=== PATIENT | female | born 1955 | race Hispanic/Latino ===

== ENCOUNTER 2016-12-15 09:07 | Emergency (ER) | payer OTHER ==
[2016-12-15 09:07] VITALS: BMI 28.1
[2016-12-15 09:13] VITALS: BP 128/73; PULSE 61; RESP 20; TEMP 97.3; O2SAT 99
--- NOTE | 2016-12-15 09:33 | ED PDOC ---
HPI: Female Pain Time Seen by Provider: 12/15/16 09:16 Chief Complaint (Provider): dysuria History Per: Patient History/Exam Limitations: no limitations Onset/Duration Of Symptoms: Days (x 3) Additional Complaint(s): Faye Partida is a 61 year old female,w ith a previous medical history of diabetes and hypertension, who presents to the ED with complaints of dysuria associated with urinary frequency and suprapubic pain ongoing for 3 days. Patient denies any fevers, vomiting or back pain. PMD: none provided Past Medical History Reviewed: Historical Data, Nursing Documentation, Vital Signs Vital Signs: Last Vital Signs Temp 97.3 F L 12/15/16 09:12 Pulse 61 12/15/16 09:12 Resp 20 12/15/16 09:12 BP 128/73 12/15/16 09:12 Pulse Ox 99 12/15/16 09:12 - Medical History PMH: Anxiety, Depression, Diabetes, HTN, Hypercholesterolemia, Hypothyroidism Denies: Chronic Kidney Disease - Surgical History Surgical History: Cholecystectomy, - Family History Family History: States: Unknown Family Hx - Immunization History Hx Tetanus Toxoid Vaccination: No Hx Influenza Vaccination: No Hx Pneumococcal Vaccination: No - Home Medications Home Medications: Ambulatory Orders Medication Instructions Recorded Acetaminophen/Oxycodone Hydr 1 tab PO Q6 PRN #5 tab 01/18/14 [Percocet 325 mg-5 mg] Cephalexin [Keflex] 500 mg PO BID #14 cap 01/18/14 Ibuprofen [Motrin] 600 mg PO Q6 PRN #20 tab 01/18/14 Sulfamethoxazole/Trimethopri 1 tab PO BID #14 tab 01/18/14 [Bactrim Ds 800 mg-160 mg] Acetaminophen/Oxycodone Hydr 1 - 2 100 PO Q4 PRN #20 tab 01/23/14 [Percocet 325 mg-5 mg] Tramadol Hydrochloride [Tramadol] 50 mg PO TID PRN #10 tab 01/23/14 Ibuprofen 600 mg PO Q6H PRN #15 tab 07/09/14 Naproxen 375 mg PO Q8 PRN #21 tab 11/04/14 diaZEpam [Valium] 5 mg PO Q6 PRN #14 tab 11/04/14 oxyCODONE/Acetaminophen [Percocet 1 ea PO Q6 #15 tab 11/04/14 5/325 mg Tab] Methylprednisolone [Medrol Dose 4 mg PO DAILY #21 tab 04/21/15 Pack (21 tabs)] traMADol [Ultram] 50 mg PO Q8 #10 tab 04/21/15 Clotrimazole 1% Vaginal [Lotrimin 1 % VG DAILY 14 Days tube 02/22/16 1% Vaginal] Ciprofloxacin HCl [Cipro] 500 mg PO BID #20 tab 12/15/16 Metformin HCl [Glucophage] 500 mg PO DAILY #30 tablet 12/15/16 amLODIPine [Norvasc] 5 mg PO DAILY #30 tab 12/15/16 - Allergies Allergies/Adverse Reactions: Allergies Allergy/AdvReac Type Severity Reaction Status Date / Time No Known Allergies Allergy Verified 02/22/16 09:02 Review of Systems ROS Statement: Except As Marked, All Systems Reviewed And Found Negative Constitutional: Negative for: Fever, Chills Gastrointestinal: Positive for: Nausea. Negative for: Vomiting Genitourinary Female: Positive for: Dysuria, Frequency, Pelvic Pain Physical Exam - Reviewed Nursing Documentation Reviewed: Yes Vital Signs Reviewed: Yes - Physical Exam Appears: Positive for: Well, Non-toxic, No Acute Distress Cardiovascular/Chest: Positive for: Regular Rate, Rhythm Respiratory: Positive for: CNT, Normal Breath Sounds Gastrointestinal/Abdominal: Positive for: Normal Exam, Bowel Sounds, Soft. Negative for: Tenderness Back: Positive for: Normal Inspection. Negative for: L CVA Tenderness, R CVA Tenderness Neurologic/Psych: Positive for: Alert, Oriented - ECG O2 Sat by Pulse Oximetry: 99 (RA) Pulse Ox Interpretation: Normal Medical Decision Making Medical Decision Making: Initial Plan: * urine dipstick * urine culture * reevaluation ----- Scribe Attestation: Documented by Tianna Al acting as a scribe for Robert Barnett MD. Scribyarelis Attestation: All medical record entries made by the Scribe were at my direction and personally dictated by me. I have reviewed the chart and agree that the record accurately reflects my personal performance of the history, physical exam, medical decision making, and the department course for this patient. I have also personally directed, reviewed, and agree with the discharge instructions and disposition. Disposition - Clinical Impression Clinical Impression: UTI (urinary tract infection), Diabetes - Patient ED Disposition Is Patient to be Admitted: No Counseled Patient/Family Regarding: Studies Performed, Diagnosis, Need For Followup, Rx Given - Disposition Referrals: [facility] [Outside] Disposition: Routine/Home Disposition Time: 09:45 Condition: FAIR Prescriptions: amLODIPine [Norvasc] 5 mg PO DAILY #30 tab Ciprofloxacin HCl [Cipro] 500 mg PO BID #20 tab Metformin HCl [Glucophage] 500 mg PO DAILY #30 tablet Instructions: Urinary Tract Infection in Women (ED), Diabetes Mellitus Type 2 in Adults (ED), Hypertension (ED)
== END 2016-12-15 10:18 | disposition home or self-care (01) ==
LOC: H.ER 09:07
DX: N39.0 Urinary tract infection, site not specified (principal); E11.9 Type 2 diabetes mellitus without complications; E03.9 Hypothyroidism, unspecified; E78.00 Pure hypercholesterolemia, unspecified; F32.9 Major depressive disorder, single episode, unspecified; F41.9 Anxiety disorder, unspecified; I10 Essential (primary) hypertension

== ENCOUNTER 2017-10-12 04:19 | Emergency (ER) | payer OTHER ==
[2017-10-12 04:47] VITALS: BP 136/72; RESP 17; TEMP 98.6; O2SAT 98
--- NOTE | 2017-10-12 05:16 | ED PDOC ---
Upper Extremity Pain/Injury Time Seen by Provider: 10/12/17 04:57 Chief Complaint (Nursing): Upper Extremity Problem/Injury Chief Complaint (Provider): right shoulder pain History Per: Patient History/Exam Limitations: no limitations Onset/Duration Of Symptoms: Days (x2 weeks) Current Symptoms Are (Timing): Still Present Exacerbating Factor(s): Movement Additional Complaint(s): Faye Partida is a 62 year old female, with a past medical history of HTN, diabetes and hypothyroidism, who presents to the emergency department complaining of right shoulder pain onset for x2 weeks while in [facility]. Patient was visiting family and states she was bit by mosquitoes and since then has had right shoulder pain. She denies any redness but reports swelling and states pain is worst with movement of the arm. No further medical complaints. PMD: None provided. Past Medical History Reviewed: Historical Data, Nursing Documentation, Vital Signs Vital Signs: Last Vital Signs Temp 98.6 F 10/12/17 04:31 Pulse 59 L 10/12/17 04:31 Resp 17 10/12/17 04:31 BP 136/72 10/12/17 04:31 Pulse Ox 98 10/12/17 04:31 - Medical History PMH: Anxiety, Depression, Diabetes, HTN, Hypercholesterolemia, Hypothyroidism Denies: Chronic Kidney Disease - Surgical History Surgical History: Cholecystectomy, - Family History Family History: States: Unknown Family Hx - Social History Current smoker - smoking cessation education provided: No Alcohol: None Drugs: Denies - Immunization History Hx Tetanus Toxoid Vaccination: No Hx Influenza Vaccination: No Hx Pneumococcal Vaccination: No - Home Medications Home Medications: Ambulatory Orders Medication Instructions Recorded amLODIPine [Norvasc] 5 mg PO DAILY #30 tab 12/15/16 Atorvastatin [Lipitor] 1 tab PO DAILY 04/08/17 Escitalopram [Lexapro] 1 tab PO DAILY 04/08/17 Metformin HCl [Glucophage] 500 mg PO TID 04/08/17 Naproxen [Naprosyn] 500 mg PO Q12 #14 tab 10/12/17 - Allergies Allergies/Adverse Reactions: Allergies Allergy/AdvReac Type Severity Reaction Status Date / Time No Known Allergies Allergy Verified 03/16/17 09:49 Review of Systems ROS Statement: Except As Marked, All Systems Reviewed And Found Negative Musculoskeletal: Positive for: Shoulder Pain (right) Physical Exam - Reviewed Nursing Documentation Reviewed: Yes Vital Signs Reviewed: Yes - Physical Exam Appears: Positive for: No Acute Distress Head Exam: Positive for: ATRAUMATIC, NORMAL INSPECTION, NORMOCEPHALIC Skin: Positive for: Normal Color, Warm, Dry Eye Exam: Positive for: Normal appearance, EOMI, PERRL Neck: Positive for: Painless ROM Cardiovascular/Chest: Positive for: Regular Rate, Rhythm. Negative for: Murmur Respiratory: Positive for: Normal Breath Sounds. Negative for: Respiratory Distress Gastrointestinal/Abdominal: Positive for: Normal Exam, Soft. Negative for: Tenderness Back: Positive for: Normal Inspection Extremity: Positive for: Normal ROM (all extremities), Tenderness (to bicipital tendon). Negative for: Deformity, Swelling Neurologic/Psych: Positive for: Alert, Oriented. Negative for: Motor/Sensory Deficits - Laboratory Results Result Diagrams: 10/12/17 05:32 10/12/17 05:32 - ECG O2 Sat by Pulse Oximetry: 98 (RA) Pulse Ox Interpretation: Normal Medical Decision Making Medical Decision Making: Time: 04:57 Initial Impression: 62 y/o female with shoulder pain in setting of recent travel and insect bites Initial Plan: --CMP --Lact Acid, Plasma --CBC --Erythrocyte sedimentation rate --Blood culture --Reevaluation 05:55 -Shoulder x-ray shows no fracture or dislocation. 06:28 -Labs reviewed and showed no clinical significant abnormalities. Patient is medically stable for discharge. Diagnosis bicipital tendinitis. ----- Scribe Attestation: Documented by Hector Bingham, acting as a scribe for Arnav Elizabeth MD. Provider Scribe Attestation: All medical record entries made by the Scribe were at my direction and personally dictated by me. I have reviewed the chart and agree that the record accurately reflects my personal performance of the history, physical exam, medical decision making, and the department course for this patient. I have also personally directed, reviewed, and agree with the discharge instructions and disposition. Disposition - Clinical Impression Clinical Impression: Biceps tendonitis on right - Disposition Referrals: Kavin Bruno Jr., MD [Primary Care Provider] - Disposition: Routine/Home Disposition Time: 06:28 Condition: STABLE Prescriptions: Naproxen [Naprosyn] 500 mg PO Q12 #14 tab Instructions: Biceps Tendinopathy Forms: [facility] (Portuguese) Print Language: COMORAN
[2017-10-12 05:49] LABS: BASO # 0.1 K/uL (0.0-0.2); EOS # 0.1 K/uL (0.0-0.7); EOS % 2.2 % (0.0-4.0); LYMPH % 40.9 % (20.0-40.0); MEAN CELL VOLUME 85.5 fl (81.0-99.0); MEAN CORPUSCULAR HEMOGLOBIN 29.1 pg (27.0-31.0); MEAN PLATELET VOLUME 7.9 fl (7.2-11.7); MONO # 0.4 K/uL (0.0-0.8); MONO % 8.1 % (0.0-10.0); NEUT # 2.3 K/uL (1.8-7.0); NEUT % 47.8 % (50.0-75.0); NRBC % 0.1 % (0.0-0.0); RBC 4.46 Mil/uL (3.80-5.20); RED CELL DISTRIBUTION WIDTH 13.5 % (11.5-14.5); WHITE BLOOD COUNT 4.9 K/uL (4.8-10.8)
[2017-10-12 06:11] LABS: ALB/GLOB RATIO 1.3 (1.0-2.1); ALBUMIN 4.2 g/dL (3.5-5.0); ALT/SGPT 30 U/L (9-52); AST/SGOT 28 U/L (14-36); BLOOD UREA NITROGEN 15 mg/dl (7-17); CALCIUM 9.4 mg/dL (8.4-10.2); GFR AFRICAN-AMERICAN > 60; GFR NON-AFRICAN AMERICAN > 60
[2017-10-12 07:00] VITALS: PULSE 61
--- NOTE | 2017-10-12 11:32 | RAD ---
Date of service: 10/12/2017 PROCEDURE: Radiographs of the Right Shoulder HISTORY: Pain COMPARISON: No prior. FINDINGS: BONES: Bone alignment and mineralization are normal. There is no acute displaced fracture or bone destruction. JOINTS: There is mild degenerative osteoarthrosis in the acromioclavicular joint. The glenohumeral joint is normal. SOFT TISSUES: Normal. OTHER FINDINGS: None. IMPRESSION: No acute fracture or dislocation. Mild degenerative osteoarthrosis in the acromioclavicular joint.
== END 2017-10-12 07:00 | disposition home or self-care (01) ==
LOC: H.ER 04:19
DX: M75.21 Bicipital tendinitis, right shoulder (principal); E11.9 Type 2 diabetes mellitus without complications; E03.9 Hypothyroidism, unspecified; E78.00 Pure hypercholesterolemia, unspecified; I10 Essential (primary) hypertension
CPT/HCPCS: 73030; 80053; 83605; 85025; 85651; 87040; 96374; 99283; J1885

== ENCOUNTER 2017-11-15 07:04 | Day surgery (SDC) | payer OTHER ==
[2017-11-15] MEDS ORDERED: Lactated Ringer's 500 ML IV ONE (07:32)
[2017-11-15] MEDS ORDERED: Midazolam 2 MG/2 ML VIAL ONE (07:57)
[2017-11-15] MEDS ORDERED: Propofol 10 mg/ml Inj (20 ML) ONE (07:58)
--- NOTE | 2017-11-15 08:22 | CP.SDSHP ---
<KevGloria - Last Filed: 11/15/17 08:20> Same Day Surgery H & P - History Proposed Procedure: egd Pre-Op Diagnosis: hx of gastric ulcer - Previous Medical/Surgical History Endocrine/Metabolic: Diabetes - Allergies Allergies: Allergies No Known Allergies Allergy (Verified 03/16/17 09:49) - Physical Exam General Appearance: no acute distress Vital Signs: Vital Signs 11/15/17 07:45 Temperature 97.4 F L Pulse Rate 57 L Respiratory 18 Rate Blood Pressure 112/49 L O2 Sat by Pulse 98 Oximetry Mental Status: Alert & Oriented x3 Neuro: WNL Heart: WNL Lungs: WNL GI: WNL - {Optional Preform as Required} Abdomen: WNL - Impression Impression: hx of gastric ulcer, GERD Pt. Evaluated Today:Candidate for Anesthesia & Procedure: Yes - Date & Time Date: 11/15/17 Time: 08:00 Short Stay Discharge - Short Stay Discharge Admitting Diagnosis/Reason for Visit: PUD Disposition: HOME/ ROUTINE Referrals: Kavin Bruno Jr., MD [Primary Care Provider] - <HernandezMayra wood - Last Filed: 11/15/17 11:41> Same Day Surgery H & P - Allergies Allergies: Allergies No Known Allergies Allergy (Verified 03/16/17 09:49) - Physical Exam Vital Signs: Vital Signs 11/15/17 11/15/17 11/15/17 07:45 09:06 09:16 Temperature 97.4 F L 97 F L 97 F L Pulse Rate 57 L 59 L 50 L Respiratory 18 20 17 Rate Blood Pressure 112/49 L 89/44 L 100/60 O2 Sat by Pulse 98 98 99 Oximetry
[2017-11-15 09:14] VITALS: TEMP 97
[2017-11-15 09:30] VITALS: BP 100/60; PULSE 50; RESP 17; O2SAT 99
== END 2017-11-15 10:00 | disposition home or self-care (01) ==
LOC: H.ENDO 07:04
PROVIDERS: ATTEND Internal Medicine Gastroenterology
DX: K28.9 Gastrojejunal ulcer, unspecified as acute or chronic, without hemorrhage or perforation (principal); K21.9 Gastro-esophageal reflux disease without esophagitis; K29.70 Gastritis, unspecified, without bleeding; K44.9 Diaphragmatic hernia without obstruction or gangrene; K31.89 Other diseases of stomach and duodenum; E11.9 Type 2 diabetes mellitus without complications; Z79.84 Long term (current) use of oral hypoglycemic drugs
CPT/HCPCS: 43239; 82948; 88305; J2001; J2250; J2704; J7120

== ENCOUNTER 2017-12-17 08:37 | Emergency (ER) | payer OTHER ==
[2017-12-17 08:44] VITALS: TEMP 98; O2SAT 98
[2017-12-17 08:45] VITALS: BMI 29.2
[2017-12-17] MEDS ORDERED: Lidocaine 5% Patch TD STA (09:21)
--- NOTE | 2017-12-17 09:27 | ED PDOC ---
HPI: Back Time Seen by Provider: 12/17/17 09:09 Chief Complaint (Nursing): Back Pain Chief Complaint (Provider): back pain History Per: Patient History/Exam Limitations: no limitations Onset/Duration Of Symptoms: Days Additional Complaint(s): Pt. was lifting a laundry basket 3 days ago and got pain to the right low back. No numbness, tingles, weakness, incontinence, constipation. No abd pain. No leg pain. No dysuria. No fever. Ambulated with pain. Past Medical History Reviewed: Nursing Documentation, Vital Signs Vital Signs: Last Vital Signs Temp 98 F 12/17/17 08:43 Pulse 60 12/17/17 08:43 Resp 16 12/17/17 08:43 BP 117/63 12/17/17 08:43 Pulse Ox 98 12/17/17 08:43 - Medical History PMH: Anxiety, Back Problems, Depression, Diabetes, HTN, Hypercholesterolemia, Hypothyroidism Denies: Chronic Kidney Disease - Surgical History Surgical History: Cholecystectomy, Endoscopy, - Family History Family History: States: Unknown Family Hx - Living Arrangements Living Arrangements: With Family - Immunization History Hx Tetanus Toxoid Vaccination: No Hx Influenza Vaccination: No Hx Pneumococcal Vaccination: No - Home Medications Home Medications: Ambulatory Orders Medication Instructions Recorded amLODIPine [Norvasc] 5 mg PO DAILY #30 tab 12/15/16 Metformin HCl [Glucophage] 500 mg PO TID 04/08/17 Ibuprofen [Motrin] 600 mg PO TID 7 Days tab 12/17/17 Lidocaine 5% [Lidoderm] 1 ea TD DAILY PRN #5 patch 12/17/17 - Allergies Allergies/Adverse Reactions: Allergies Allergy/AdvReac Type Severity Reaction Status Date / Time No Known Allergies Allergy Verified 03/16/17 09:49 Review of Systems Constitutional: Negative for: Weakness Cardiovascular: Negative for: Chest Pain Respiratory: Negative for: Shortness of Breath Gastrointestinal: Negative for: Nausea, Vomiting, Abdominal Pain, Diarrhea Genitourinary Female: Negative for: Dysuria Musculoskeletal: Positive for: Back Pain. Negative for: Neck Pain, Shoulder Pain, Arm Pain Neurological: Negative for: Weakness, Numbness Physical Exam - Reviewed Nursing Documentation Reviewed: Yes Vital Signs Reviewed: Yes - Physical Exam Appears: Positive for: Non-toxic, No Acute Distress Head Exam: Positive for: ATRAUMATIC, NORMAL INSPECTION, NORMOCEPHALIC Skin: Positive for: Normal Color, Warm, DRY Eye Exam: Positive for: Normal appearance Neck: Positive for: Normal, Painless ROM Cardiovascular/Chest: Positive for: Regular Rate, Rhythm Respiratory: Positive for: CNT, Normal Breath Sounds Gastrointestinal/Abdominal: Positive for: Normal Exam, Soft. Negative for: Tenderness Back: Positive for: Other (R low back closer; straight leg positive at 30* R.) Extremity: Negative for: Tenderness, Pedal Edema Neurologic/Psych: Positive for: Alert, Oriented - ECG O2 Sat by Pulse Oximetry: 98 - Radiology X-Ray: Read By Radiologist X-Ray Interpretation: No Acute Disease - Progress ED Course And Treament: 1106: Stable. Return if not better in 3 days. Ambulated with no issues. Disposition - Clinical Impression Clinical Impression: Low back pain - Patient ED Disposition Is Patient to be Admitted: No Counseled Patient/Family Regarding: Studies Performed, Diagnosis, Need For Followup, Rx Given - Disposition Referrals: [facility] [Outside] - 12/20/17 Disposition: Routine/Home Disposition Time: 11:09 Condition: STABLE Additional Instructions: Return if not better in 3 days. Prescriptions: Ibuprofen [Motrin] 600 mg PO TID 7 Days tab Lidocaine 5% [Lidoderm] 1 ea TD DAILY PRN #5 patch PRN Reason: Pain, Moderate (4-7) Instructions: Low Back Pain in Adults Forms: [employer] ED School/Work Excuse
[2017-12-17] MEDS ORDERED: Lidocaine 5% Patch TD ONE (09:32)
--- NOTE | 2017-12-17 10:33 | RAD ---
Date of service: 12/17/2017 PROCEDURE: Radiographs of the Lumbar Spine. HISTORY: back pain COMPARISON: Correlations made to CT scan of the abdomen pelvis dated 07/09/2014. FINDINGS: BONES: Normal alignment. No listhesis. No fracture. DISC SPACES: Mild multilevel disc space narrowing. OTHER FINDINGS: Right upper quadrant surgical clips. IMPRESSION: No acute fracture. Multilevel degenerative changes.
[2017-12-17 11:53] VITALS: BP 110/78; PULSE 75; RESP 19
== END 2017-12-17 11:53 | disposition home or self-care (01) ==
LOC: H.ER 08:37
DX: M54.5 Low back pain (principal)
CPT/HCPCS: 72114; 96372; 99284; J1885

== ENCOUNTER 2018-03-26 07:10 | Emergency (ER) | payer MEDICARE, MEDICAID ==
[2018-03-26 07:10] VITALS: BMI 29.2
[2018-03-26 07:21] VITALS: O2SAT 99
--- NOTE | 2018-03-26 07:58 | ED PDOC ---
Upper Extremity Pain/Injury Time Seen by Provider: 03/26/18 07:45 Chief Complaint (Nursing): Upper Extremity Problem/Injury Chief Complaint (Provider): Upper Extremity and Lower Extremity Problem/Injury History Per: Patient History/Exam Limitations: no limitations Onset/Duration Of Symptoms: Days (x7) Current Symptoms Are (Timing): Still Present Additional Complaint(s): 63 y/o female presents to the ED for evaluation of right elbow and right knee pain, onset on week ago. Patient denies any history of trauma and fevers. Patient reports of being seen by her PMD and diagnosed with Rheumatoid Arthritis but is taking no meds currently. Of note, patient had a rheumatoid panel done here in 2014 which resulted positive for rheumatoid factor. PMD: Kavin Bruno Jr. Past Medical History Reviewed: Historical Data, Nursing Documentation, Vital Signs Vital Signs: Last Vital Signs Temp 9.3 F L 03/26/18 07:20 Pulse 69 03/26/18 07:20 Resp 20 03/26/18 07:20 BP 111/57 L 03/26/18 07:20 Pulse Ox 99 03/26/18 07:20 - Medical History PMH: Anxiety, Back Problems, Depression, Diabetes, HTN, Hypercholesterolemia, Hypothyroidism, Rheumatoid Arthritis Denies: Chronic Kidney Disease - Surgical History Surgical History: Cholecystectomy, Endoscopy, - Family History Family History: States: Unknown Family Hx - Immunization History Hx Tetanus Toxoid Vaccination: No Hx Influenza Vaccination: No Hx Pneumococcal Vaccination: No - Home Medications Home Medications: Ambulatory Orders Medication Instructions Recorded amLODIPine [Norvasc] 5 mg PO DAILY #30 tab 12/15/16 Metformin HCl [Glucophage] 500 mg PO TID 04/08/17 Ibuprofen [Motrin] 600 mg PO TID 7 Days tab 12/17/17 Lidocaine 5% [Lidoderm] 1 ea TD DAILY PRN #5 patch 12/17/17 Naproxen [Naprosyn] 500 mg PO Q12H #20 tab 03/26/18 traMADol [Ultram] 50 mg PO Q8 #10 tab 03/26/18 - Allergies Allergies/Adverse Reactions: Allergies Allergy/AdvReac Type Severity Reaction Status Date / Time No Known Allergies Allergy Verified 03/16/17 09:49 Review of Systems ROS Statement: Except As Marked, All Systems Reviewed And Found Negative Constitutional: Negative for: Fever Musculoskeletal: Positive for: Arm Pain (right elbow), Leg Pain (right knee) Physical Exam - Reviewed Nursing Documentation Reviewed: Yes Vital Signs Reviewed: Yes - Physical Exam Appears: Positive for: No Acute Distress Extremity: Positive for: Normal ROM (of the right knee and right elbow). Negative for: Deformity (of the right knee and elbow), Swelling (of the right knee and elbow), Other (erythema of the right knee and elbow. Warmth of the right knee) - ECG O2 Sat by Pulse Oximetry: 99 (RA) Pulse Ox Interpretation: Normal Medical Decision Making Medical Decision Making: Time: 749 Plan: -- Toradol 30 mg IM -- Given positive history of Rheumatoid Arthritis, will not do any imaging or blood work today but will start patient with NSAIDS and outpatient follow up. Scribe Attestation: Documented by Charanjit Villalta, acting as a scribe for Robert Barnett MD. Provider Scribe Attestation: All medical record entries made by the Scribe were at my direction and personally dictated by me. I have reviewed the chart and agree that the record accurately reflects my personal performance of the history, physical exam, medical decision making, and the department course for this patient. I have also personally directed, reviewed, and agree with the discharge instructions and disposition. Disposition - Clinical Impression Clinical Impression: Rheumatoid arthritis - Patient ED Disposition Is Patient to be Admitted: No Counseled Patient/Family Regarding: Diagnosis, Need For Followup, Rx Given - Disposition Disposition: Routine/Home Disposition Time: 08:09 Condition: FAIR Prescriptions: Naproxen [Naprosyn] 500 mg PO Q12H #20 tab traMADol [Ultram] 50 mg PO Q8 #10 tab Instructions: Rheumatoid Arthritis Forms: [employer] ([place] Citizen)
[2018-03-26 08:54] VITALS: BP 114/68; PULSE 74; RESP 17; TEMP 98.4
== END 2018-03-26 08:33 | disposition home or self-care (01) ==
LOC: H.ER 07:10
DX: M06.9 Rheumatoid arthritis, unspecified (principal)
CPT/HCPCS: 96372; 99283; J1885